=== PATIENT | female | born 1970 | race Hispanic/Latino ===

== ENCOUNTER 2018-09-08 10:23 | Emergency (ER) | payer MEDICARE ==
[2018-09-08 10:23] VITALS: BMI 37.2
[2018-09-08] MEDS ORDERED: Sodium Chloride 0.9% 1,000 ML IV STA (10:39)
[2018-09-08 11:44] LABS: BASO # 0.1 K/uL (0.0-0.2); BASO % 0.7 % (0.0-2.0); EOS # 0.2 K/uL (0.0-0.7); EOS % 1.4 % (0.0-4.0); HEMOGLOBIN 12.1 g/dL (12.0-16.0); LYMPH # 2.6 K/uL (1.0-4.3); MEAN CELL VOLUME 96.3 fl (81.0-99.0); MEAN CORPUSCULAR HEMOGLOBIN 31.3 pg (27.0-31.0); MEAN CORPUSCULAR HGB CONC 32.6 g/dL (33.0-37.0); MEAN PLATELET VOLUME 8.1 fl (7.2-11.7); MONO # 0.6 K/uL (0.0-0.8); MONO % 4.9 % (0.0-10.0); NEUT # 7.9 K/uL (1.8-7.0); RBC 3.85 Mil/uL (3.80-5.20); RED CELL DISTRIBUTION WIDTH 12.9 % (11.5-14.5); WHITE BLOOD COUNT 11.2 K/uL (4.8-10.8)
[2018-09-08 12:04] LABS: BLOOD UREA NITROGEN 10 mg/dl (7-17); CALCIUM 8.8 mg/dL (8.4-10.2); GFR NON-AFRICAN AMERICAN > 60
--- NOTE | 2018-09-08 12:32 | ED PDOC ---
Syncope/Near Syncope/Dizziness Time Seen by Provider: 09/08/18 10:39 Chief Complaint (Nursing): Dizziness/Lightheaded Chief Complaint (Provider): Dizziness/Lightheaded History Per: Patient History/Exam Limitations: no limitations Activity At Onset Of Symptoms: Sitting Additional Complaint(s): 48 years old female with history of multiple sclerosis and arterial fibrillation presents from infusion center for evaluation of syncopal vs. near syncopal episode. The ER was informed by Dr. Palmer that patient was sitting in chair and shortly after the IV line was placed, patient became diaphoretic and slummed down but never fell off the chair. Unclear if patient fully lost conscious. She is now in the ER with stable vitals, alert and oriented. Patient reports she has been having infusions with IVs for several years but had never had this problem before. She states she feels better now but she hasn't tried to walk yet. Patient reports headaches due to MS. She denies any dizziness or confusion. PMD: Brennen Holland Past Medical History Reviewed: Historical Data, Nursing Documentation, Vital Signs Vital Signs: Last Vital Signs Temp 98.2 F 09/08/18 10:47 Pulse 61 09/08/18 10:47 Resp 18 09/08/18 10:47 BP 102/62 09/08/18 10:47 Pulse Ox 99 09/08/18 10:47 - Medical History PMH: Anxiety, Arthritis (Bilateral Ankles), Atrial Fibrillation, Bipolar Disorder, Fractures (Broken tailbone), Multiple Sclerosis, Post Traumatic Stress Disorder, Seizures Denies: Depression, Diabetes, Hepatitis, HIV, HTN, Chronic Kidney Disease, Sexually Transmitted Disease - Surgical History Surgical History: No Surg Hx - Family History Family History: States: Unknown Family Hx - Social History Current smoker - smoking cessation education provided: No Alcohol: Social Drugs: Cannabis (Marijuana) - Home Medications Home Medications: Ambulatory Orders Medication Instructions Recorded Apixaban [Eliquis] 5 mg PO BID 05/02/18 - Allergies Allergies/Adverse Reactions: Allergies Allergy/AdvReac Type Severity Reaction Status Date / Time tolterodine Allergy SWELLING Verified 08/11/18 09:56 Review of Systems ROS Statement: Except As Marked, All Systems Reviewed And Found Negative Neurological: Positive for: Headache, Other (syncopal/near synopal episode). Negative for: Confusion, Dizziness Physical Exam - Reviewed Nursing Documentation Reviewed: Yes Vital Signs Reviewed: Yes - Physical Exam Appears: Positive for: Non-toxic, No Acute Distress Head Exam: Positive for: ATRAUMATIC, NORMOCEPHALIC Skin: Positive for: Normal Color, Warm, Dry Eye Exam: Positive for: Normal appearance, EOMI, PERRL Neck: Positive for: Normal, Painless ROM, Supple Cardiovascular/Chest: Positive for: Regular Rate, Rhythm. Negative for: Murmur Respiratory: Positive for: Normal Breath Sounds. Negative for: Wheezing Gastrointestinal/Abdominal: Positive for: Normal Exam, Soft. Negative for: Tenderness Back: Positive for: Normal Inspection. Negative for: L CVA Tenderness, R CVA Tenderness Extremity: Positive for: Normal ROM. Negative for: Tenderness, Swelling Neurologic/Psych: Positive for: Alert, Oriented (x3) - Laboratory Results Result Diagrams: 09/08/18 11:30 09/08/18 11:30 - ECG O2 Sat by Pulse Oximetry: 99 (RA) Pulse Ox Interpretation: Normal Medical Decision Making Medical Decision Making: Time: 1039 Initial plan: --Workup for syncope vasovagal follow up with nasal IV line --Cardiac workup --CT scan of brain possibility discussed with patient but not indicated at this time --IV fluid --Reassess patient ----- Scribe Attestation: Documented by Stacy Herrera, acting as a scribe for Aspen Orlando MD. Provider Scribe Attestation: All medical record entries made by the Scribe were at my direction and personally dictated by me. I have reviewed the chart and agree that the record accurately reflects my personal performance of the history, physical exam, medical decision making, and the department course for this patient. I have also personally directed, reviewed, and agree with the discharge instructions and disposition. Pt with stable vitals. LWNL. 2 EKGs show NSR. Pt ambulatory without deficit or dizziness. Pt to be discharged home and will follow up with primary medical doctor. Disposition - Clinical Impression Clinical Impression: Dizziness, Vasovagal near syncope - Disposition Disposition: Routine/Home Disposition Time: 13:34 Condition: IMPROVED Additional Instructions: Follow up with primary medical doctor. Return to the emergency department if symptoms worsen or if new symptoms develop. Instructions: Vertigo (a Type of Dizziness), Vasovagal Response (DC) Forms: [facility] (Spanish) Print Language: GHANAIAN
[2018-09-08 14:06] VITALS: BP 103/53; PULSE 84; RESP 16; TEMP 98.7; O2SAT 98
--- NOTE | 2018-09-08 20:19 | CARD ---
APPROVED REPORT Date of service: 09/08/2018 EKG Measurement Heart [id number] [id number] [id number] <Conclusion> Sinus bradycardia Otherwise normal ECG
--- NOTE | 2018-09-09 12:25 | CARD ---
APPROVED REPORT Date of service: 09/08/2018 EKG Measurement Heart [id number] NM 154P0 [id number] <Conclusion> Normal sinus rhythm Normal ECG
== END 2018-09-08 13:49 | disposition home or self-care (01) ==
LOC: H.ER 10:23
DX: R42 Dizziness and giddiness (principal); R55 Syncope and collapse; F31.9 Bipolar disorder, unspecified; F43.10 Post-traumatic stress disorder, unspecified; G35 Multiple sclerosis; I48.91 Unspecified atrial fibrillation; Z79.01 Long term (current) use of anticoagulants
CPT/HCPCS: 80048; 82948; 84484; 85025; 93005; 96360; 99285; J7030